=== PATIENT | male | born 1975 | race Caucasian/White ===

== ENCOUNTER 2018-05-08 18:16 | Observation (INO) ==
[2018-05-08] MEDS ORDERED: Haloperidol Lactate 5 MG/ML VIAL IM ONE (18:20)
[2018-05-08] MEDS ORDERED: *HR* LORazepam 2 MG/ML VIAL IM ONE (18:20)
[2018-05-08] MEDS ORDERED: 0.9 % Sodium Chloride 1,000 ML IVC ONE (19:18)
--- NOTE | 2018-05-08 19:32 | Emergency Department Note ---
Disposition Clinical Impression: Acute psychosis, Drug abuse, Chest pain Disposition: Admitted As Inpatient Condition: Fair Referrals: NONE,PCP [Primary Care Provider] - Time of Disposition: 19:32 General Adult HPI - General Chief complaint: ED Psychiatric Symptoms Stated complaint: General Time Seen by Provider: 05/08/18 18:20 Source: patient Limitations: no limitations - History of Present Illness Pain Scale: 0 - Related Data Allergies Allergy/AdvReac Type Severity Reaction Status Date / Time No Known Allergies Allergy Verified 05/08/18 15:17 Past Medical History - Past Medical History Medical history: Reports: hypertension Psychiatric history: Reports: anxiety, depression - Social History Smoking Status: Current every day smoker Smokeless Tobacco Status: No Alcohol use: Reports: occasionally Drug use: Reports: cocaine, methamphetamine Physical Exam - General Limitations: no limitations General appearance: alert, in no apparent distress Course Vital Signs Temperature 99 F 05/08/18 18:22 Pulse Rate 134 05/08/18 18:22 Respiratory Rate 20 05/08/18 18:22 Blood Pressure 153/131 05/08/18 18:22 O2 Sat by Pulse Oximetry 97 05/08/18 18:22 Temperature 99 F 05/08/18 18:22 Pulse Rate 139 05/08/18 18:31 Respiratory Rate 20 05/08/18 18:31 Blood Pressure 124/83 05/08/18 18:31 O2 Sat by Pulse Oximetry 98 05/08/18 18:31 Oxygen Delivery Oxygen Delivery Room Air Attestation Statement - Attestation Attestation: I, Josh Guerrier DO, examined this patient [id number] and my medical decision-making was reviewed with Dr. Yvonne Traore, Resident Physician. I agree with the documented findings, disposition and treatment plan as described except to the extent set forth below. Please see my progress notes for details. Patient return to the emergency room after eloping earlier today. Patient was positive for methamphetamines cocaine and opioids. Patient denied any of these substances being used within the last 24 hours prior to coming in the emergency room. The family member was with him at the bedside initially and said that he had not slept in 24-48 hours. He does have a substance abuse history. On presentation here the patient was hysterical with tachycardia noted up to 140 and screaming and complaining of significant chest pain. CT angiography the chest and abdomen are unremarkable as well as laboratory workup EKG status multiple events as well as her troponin had nondiagnostic presentation. Patient was brought back in today after eloping while he was walking [place] the middle of the [place]. The police arrested him and brought him in. They felt that he was not stable enough to be placed in correction at this times about about to the emergency room. The patient was argumentative combative and dangerous for the remainder the staff. Help 5 mg as well as 2 mg Ativan were provided in restraints were placed. She restrained orders were placed at this time. Patient will be admitted for unknown etiology to psychosis outside of potential drug-induced presentation. Patient otherwise had a negative initial cardiac evaluation as repeat EKG shows no changes out of the tachycardia 1:30. The patient was altered on arrival here this time but otherwise no other acute issues at this point. Patient will be admitted to the hospital for continuation of care. The hospitalist was contacted and they had no other concerns or issues at this point. Patient is resting in the bed at this time and no acute neurologic changes. CT imaging the head is unremarkable. See detailed documentation the physical exam, medical intervention, medical decision-making disposition in the resident physician's note.
--- NOTE | 2018-05-08 19:43 | Emergency Department Note ---
Disposition Clinical Impression: Acute psychosis, Drug abuse Chest pain Qualifiers: Chest pain type: unspecified Qualified Code(s): R07.9 - Chest pain, unspecified Disposition: Admitted As Inpatient Condition: Fair General Adult HPI - General Chief complaint: ED Psychiatric Symptoms Stated complaint: General Time Seen by Provider: 05/08/18 18:20 Source: patient, EMS, police Mode of arrival: EMS Limitations: no limitations Nursing Notes Reviewed: Yes Vital Signs Reviewed: Yes - History of Present Illness HPI Narrative: 42-year-old male who was seen earlier and eloped. Patient was found wandering the street near the hospital. He stated he did not know what year it was. In the room the patient states his chest pain has resolved. Denies any new areas of trauma. Patient aggressive and verbally abusive in the room during examination. Pain Scale: 0 - Related Data Home Medications Medication Instructions Recorded Confirmed Unable To Obtain [Unable to Obtain] 05/08/18 05/08/18 Allergies Allergy/AdvReac Type Severity Reaction Status Date / Time No Known Allergies Allergy Verified 05/08/18 15:17 Limitations: ROS unobtainable due to patients medical condition Past Medical History - Past Medical History Attestation: Yes The following information was validated with the patient. Medical history: Reports: hypertension Psychiatric history: Reports: anxiety, depression - Social History Smoking Status: Current every day smoker Smokeless Tobacco Status: No Alcohol use: Reports: occasionally Drug use: Reports: cocaine, methamphetamine Physical Exam - General Limitations: no limitations General appearance: alert, in no apparent distress - Head Head exam: other (Superficial abrasion noted over the left eyebrow) - Eye Eye exam: Present: normal appearance. Absent: scleral icterus, conjunctival injection - ENT ENT exam: mucous membranes dry - Chest Chest inspection: Present: normal inspection, symmetric chest wall rise. Absent : tenderness, rash - Respiratory Respiratory exam: Present: normal lung sounds bilaterally. Absent: respiratory distress, wheezes - Cardiovascular Cardiovascular exam: Present: normal rhythm, tachycardia, normal heart sounds - Abdominal Exam Abdominal exam: Present: soft, Non-Tender. Absent: distention, guarding, rebound - Extremities Exam Extremities exam: Present: full ROM - Neurological Exam Neurological exam: Present: alert - Psychiatric Psychiatric exam: Present: agitated, anxious - Skin Skin exam: Present: warm Course Course Narrative: 42-year-old male presenting for altered mental status. Seen earlier for chest pain and noted to have acute kidney injury. Patient remains dry on exam. He is extremely diaphoretic. Has superficial abrasion over the left eyebrow. Patient extremely aggressive and verbally abusive in the room. Patient given 50 of Benadryl, 5 of Haldol and 2 of Ativan. We will obtain a CT of the head and plan to admit him for altered mental status and chest pain. Concern for acute drug intoxication as well. Patient remains alert and is tachycardic but otherwise hemodynamically stable. We will pink slipped the patient due to concern for self-harm and harm to others. - Reevaluation(s) Reevaluation #1: Patient CT of the head benign. We will plan to admit the patient at this time hospitalist service. I spoke with the hospitalist on-call who agrees to accept the patient at this time. We will provide the patient with a liter of fluids at this time as well. Hemodynamically stable in the room. Vital Signs Temperature 99 F 05/08/18 18:22 Pulse Rate 134 05/08/18 18:22 Respiratory Rate 20 05/08/18 18:22 Blood Pressure 153/131 05/08/18 18:22 O2 Sat by Pulse Oximetry 97 05/08/18 18:22 Temperature 98.0 F 05/11/18 07:12 Pulse Rate 72 05/11/18 07:12 Respiratory Rate 18 05/11/18 07:12 Blood Pressure 138/89 05/11/18 07:12 O2 Sat by Pulse Oximetry 99 05/11/18 07:12 Oxygen Delivery Oxygen Delivery Room Air Medical Decision Making - Lab Data Result diagrams: 05/10/18 08:27 05/10/18 08:27 Attestation Statement - Attestation Attestation: I, Josh Guerrier DO, examined this patient [id number] and my medical decision-making was reviewed with Dr. Yvonne Traore, Resident Physician. I agree with the documented findings, disposition and treatment plan as described except to the extent set forth below. Please see my progress notes for details.
[2018-05-08] MEDS ORDERED: *HR* LORazepam 2 MG/ML VIAL IVP PRN (20:53)
[2018-05-08] MEDS ORDERED: Haloperidol Lactate 5 MG/ML VIAL IVP PRN (20:53)
[2018-05-08] MEDS ORDERED: Naloxone 0.4 MG/ML INJ IVP PRN (20:57)
--- NOTE | 2018-05-08 21:08 | Internal Med History&Physical ---
<Tommy Adame - Last Filed: 05/08/18 21:23> Date of Encounter: 05/08/18 Time of Encounter: 21:07 Internal Medicine - H&P: HPI Chief complaint: chest pain Admitted From: Home Plans for Post Hospital Care: Home History of present illness: Mr. Stover is a 42 year old male presented with chief complaint of chest pain. History is obtained from EMR as patient is sedated,not arousable after being given IV Ativan. She initially came in today EGD around 1354. At that time his chief complaint was chest pain and he stated that he likely use drugs 3 days ago. Patient woke up today and had severe substernal chest pain without radiation. He does not have a heart history. Patient does have a history of hypertension and diabetes. He also took Viagra today. In the ED patient went CTA which was negative. He became very agitated and was given Ativan and morphine. His chest pain worsened. He was unable to be given nitroglycerin to 2 Viagra use. BMP, EKG, troponin, CK were all within normal limits. He then became very agitated on a low from the emergency department when outside and sat on the telemetry pack. UDS was positive for opioids, cocaine, methamphetamine. Family member stated that he had not suffered 24-48 hours. Police [place] the patient in the middle [place] the [place]. He was taken back to [facility] and was sedated with Ativan and put on restraints. Repeat EKG showed no ischemic changes. CT of the head was negative. Past Med Surg Social Fam HX - Past Medical History Medical history: hypertension Psychiatric history: anxiety, depression - Past Surgical History Additional surgical history: Femur in leg - Social History Smoking Status: Current every day smoker Smokeless Tobacco Status: No Alcohol use: occasionally Drug use: cocaine, methamphetamine Internal Medicine - H&P: Meds Unable To Obtain [Unable to Obtain] 05/08/18 [History] 3 Allergy/AdvReac Type Severity Reaction Status Date / Time No Known Allergies Allergy Verified 05/08/18 15:17 ROS unobtainable: due to mental status All Systems PM: A 10-system review of systems was performed and is negative for pertinent findings except as documented above in the HPI. - Constitutional Vitals: Temp Pulse Resp BP Pulse Ox 99 F 139 20 124/83 98 05/08/18 18:22 05/08/18 18:31 05/08/18 18:31 05/08/18 18:31 05/08/18 18:31 Exam: General: Asleep, not arousable, diaphoretic HEENT: Head atraumatic, normocephalic, PERRL, absent ear discharge or trauma, unable to do oral exam. Neck: nontender to palpation, absent lymphadenopathy, Cardiovascualr: Sinus tachycardia without murmur, absent gallops or rubs, absent pedal edema, radial pulses 2 out of 4 Lungs: Clear to auscultation bilaterally, not in respiratory distress Abdomen: Soft nontender, nondistended positive bowel sounds, absent hepatomegaly Skin: Skin diaphoretic, absent rash, absent open wounds and nodules MSK: absent clubbing, cyanosis, joints without swelling Neuro: Unable to assess due to sedation Psych: unable to asses due to sedation - Assessment and plan (1) Chest pain Current Visit: Yes Status: Acute Assessment and plan: Patient's initial chief complaint was chest pain History and to be on methamphetamines and cocaine Likely causes chest pain His troponin was 0.03 His EKG was normal sinus rhythm with no ST-T wave changes A CTA was negative We will put patient on telemetry. Repeat CBC, BMP in the morning. Qualifiers: Chest pain type: unspecified Qualified Code(s): R07.9 - Chest pain, unspecified (2) Acute psychosis Current Visit: Yes Status: Acute Assessment and plan: 2nd to opiates, amphetamine, cocaine use Patient is currently sedated with Ativan and Haldol We will continue IV fluids. Nothing by mouth. restraints sitter Psychiatry consultation (3) Drug abuse Current Visit: Yes Status: Acute (4) PATRIA (acute kidney injury) Current Visit: Yes Status: Acute Assessment and plan: Likely secondary to drug abuse including amphetamines Patient is started on IV fluids BMP,CK, lfts in the morning This patient's kidney function does not improve he will need additional evaluation with urine studies and retroperitoneal ultrasound. - Time Spent With Patient Total time spent is greater than 50% in coordination of care (as documented) at patient's floor/unit and/or counseling patient: <Amado Bianchi - Last Filed: 05/08/18 22:55> Date of Encounter: 05/08/18 Internal Medicine - H&P: HPI History of present illness: Mr. Stover is a 42 year old male All Systems PM: A 10-system review of systems was performed and is negative for pertinent findings except as documented above in the HPI. - Constitutional Vitals: Temp Pulse Resp BP Pulse Ox 97.6 F 79 18 112/70 97 05/08/18 21:32 05/08/18 21:32 05/08/18 21:32 05/08/18 21:32 05/08/18 21:32 - Assessment and plan (1) Chest pain Current Visit: Yes Status: Acute Qualifiers: Chest pain type: unspecified Qualified Code(s): R07.9 - Chest pain, unspecified (2) Drug abuse Current Visit: Yes Status: Acute (3) Acute psychosis Current Visit: Yes Status: Acute (4) PATRIA (acute kidney injury) Current Visit: Yes Status: Acute - Time Spent With Patient Total time spent is greater than 50% in coordination of care (as documented) at patient's floor/unit and/or counseling patient: - Attending Attestation 42-year-old male with a history of substance abuse disorder who presents with amphetamine intoxication found by police in the streets roaming after a prior signing out AMA episodes from the ER. Seems to be more notably altered than his initial presentation earlier in the afternoon when he came in with a complaint of chest pain. Here he required lorazepam, haloperidol and diphenhydramine for sedation. Head CT unremarkable. Remained hemodynamically stable. He was pink slipped due to concern for self-harm and harm to others as he was verbally abusive in the ER. On my assessment patient was nonverbal to me however. Seems clinically stable. Physical exam grossly unremarkable. On IV fluids, check electrolytes and CK level to ensure there within normal limits. Lorazepam when necessary as needed and will benefit from psych consultation in the morning.
[2018-05-08] MEDS: *HR* Heparin 5,000 UNIT/ML VIAL SQ SCH (23:29)
[2018-05-08] MEDS: Ringers Solution, Lactated 1,000 ML IVC SCH (23:40)
[2018-05-09 05:54] LABS: Alanine Aminotransferase 15 Units/L (7-52); Albumin 4.2 g/dL (3.5-5.7); Albumin/Globulin Ratio 1.7 (1.1-2.2); Alkaline Phosphatase 66 Units/L (34-104); Aspartate Amino Transferase 18 Units/L (13-39); BUN/Creatinine Ratio 13 (6-26); Bilirubin,Direct 0.2 mg/dL (0.0-0.2); Bilirubin,Indirect 0.5 mg/dL (0.0-1.2); Bilirubin,Total 0.7 mg/dL (0.3-1.0); Blood Urea Nitrogen 15 mg/dL (6-20); Calcium 9.3 mg/dL (8.6-10.3); Carbon Dioxide 24 mEq/L (23-29); Chloride 109 mEq/L (98-107); Creatine Kinase 223 Units/L (30-223); Globulin 2.5 g/dL (2.4-3.5); Glucose 92 mg/dL (70-105); Magnesium 2.4 mg/dL (1.6-2.6); Osmolality,Calculated 294 (280-300); Potassium 4.2 mEq/L (3.5-5.1); Sodium 142 mEq/L (136-145); Total Protein 6.7 g/dL (6.4-8.9); eGFR For Non-African Americans > 60 (> 60)
[2018-05-09] MEDS: *HR* Heparin 5,000 UNIT/ML VIAL SQ SCH ×3 (06:10→21:18)
[2018-05-09] MEDS: Ringers Solution, Lactated 1,000 ML IVC SCH (07:31)
[2018-05-09 07:39] LABS: Basophils % 0.2 %; Eosinophils % 0.5 %; Hematocrit 34.8 % (37.5-50.1); Hemoglobin 12.2 g/dL (12.9-16.9); Immature Granulocytes % 0.4 % (0-4); Lymphocytes % 47.5 %; Mean Corpuscular HGB Conc 35.1 g/dL (31.6-35.5); Mean Corpuscular Hemoglobin 34.3 pg (28.0-33.3); Mean Corpuscular Volume 97.8 fL (83.0-100.0); Mean Platelet Volume 9.1 fL (9.4-12.4); Monocytes # 0.6 K/mcL (0.0-1.3); Monocytes % 10.1 %; Neutrophils # 2.3 K/mcL (1.6-8.9); Platelet Count 106 K/mcL (140-400); Red Blood Count 3.56 M/mcL (4.19-5.50); Red Cell Distribution Width 13.8 % (11.5-14.5); Segmented Neutrophils % 41.3 %
[2018-05-09 10:01] LABS: Lymphocytes # 2.7 K/mcL (0.6-4.6)
[2018-05-09 10:02] LABS: Platelet Estimate Slight Decrease (Normal)
--- NOTE | 2018-05-09 11:39 | Internal Med Progress Note ---
Hospitalist Progress Note - Encounter Date of Encounter: 05/09/18 Time of Encounter: 11:39 - Subjective Interval History: Patient seen and examined at bedside currently patient is awake alert and oriented following simple commands. He does not recall any of the events that took place yesterday. He denies taking any cocaine or methamphetamines he states he took some 3 days ago. Denies any chest pain at this time we will complete cardiac workup reviewed treatment plan with the patient who verbalized understanding. - Exam Vitals: Temp Pulse Resp BP Pulse Ox 97.8 F 82 18 117/79 98 05/09/18 06:19 05/09/18 06:19 05/09/18 06:19 05/09/18 06:19 05/09/18 06:19 Exam: General: Alert appropriate following directions HEENT: Head atraumatic, normocephalic, PERRL, absent ear discharge or trauma, unable to do oral exam. Neck: nontender to palpation, absent lymphadenopathy, Cardiovascualr: Sinus tachycardia without murmur, absent gallops or rubs, absent pedal edema, radial pulses 2 out of 4 Lungs: Clear to auscultation bilaterally, not in respiratory distress Abdomen: Soft nontender, nondistended positive bowel sounds, absent hepatomegaly Skin: Skin diaphoretic, absent rash, absent open wounds and nodules MSK: absent clubbing, cyanosis, joints without swelling Neuro: Alert oriented 3 following simple commands cranial nerves II through 12 are intact Psych: Appropriate affect - Assessment and Plan (1) Chest pain Current Visit: Yes Status: Acute Assessment and Plan: Patient's initial chief complaint was chest pain History and to be on methamphetamines and cocaine Likely causes chest pain His troponin was 0.03 His EKG was normal sinus rhythm with no ST-T wave changes A CTA was negative We will put patient on telemetry. Repeat CBC, BMP in the morning. 05/09 currently he is chest pain-free we will recheck EKG and troponin obtain echo-suspect chest pain secondary to illicit drug use (2) Drug abuse Current Visit: Yes Status: Acute Assessment and Plan: 1 patient was positive for amphetamines ,cocaine and opioids-patient denies using any drugs prior to presentation. States that he has used in the past Will monitor for any withdrawal Cardiac monitoring we will check EKG (3) Acute psychosis Current Visit: Yes Status: Resolved Assessment and Plan: 2nd to opiates, amphetamine, cocaine use Patient is currently sedated with Ativan and Haldol We will continue IV fluids. Nothing by mouth. restraints sitter Psychiatry consultation 05-09 appears patient is back to baseline-acute psychoses most likely secondary to amphetamines and cocaine use Appreciate psychiatry recommendation (4) PATRIA (acute kidney injury) Current Visit: Yes Status: Acute Assessment and Plan: Likely secondary to drug abuse including amphetamines Patient is started on IV fluids BMP,CK, lfts in the morning This patient's kidney function does not improve he will need additional evaluation with urine studies and retroperitoneal ultrasound. 05/09-this is returned to baseline after IV fluids-most likely secondary to drug abuse - Time Spent with Patient Total time spent is greater than 50% in coordination of care (as documented) at patient's floor/unit and/or counseling patient: Internal Medicine: Result - Labs CBC & Chem 7: 05/09/18 07:11 05/09/18 04:41 Labs: Short CBC 05/09/18 Range/Units 07:11 WBC 5.6 (4.3-11.1) K/mcL Hgb 12.2 L (12.9-16.9) g/dL Hct 34.8 L (37.5-50.1) % Plt Count 106 L (140-400) K/mcL Neutrophils # 2.3 (1.6-8.9) K/mcL BMP 05/09/18 04:41 Sodium 142 Potassium 4.2 Chloride 109 H Carbon Dioxide 24 BUN 15 Creatinine 1.13 Glucose 92 Calcium 9.3 Liver Function 05/09/18 Range/Units 04:41 Total Bilirubin 0.7 (0.3-1.0) mg/dL Direct Bilirubin 0.2 (0.0-0.2) mg/dL AST 18 (13-39) Units/L ALT 15 (7-52) Units/L Alkaline Phosphatase 66 (34-104) Units/L Albumin 4.2 (3.5-5.7) g/dL Consult Discharge Plan - Plan Referrals: NONE,PCP [Primary Care Provider] - (1) Chest pain Qualifiers: Chest pain type: unspecified Qualified Code(s): R07.9 - Chest pain, unspecified
--- NOTE | 2018-05-09 14:42 | Psychiatry Progress Note ---
Date of Encounter: 05/09/18 Time of Encounter: 14:20 Subjective Interval history: Psychiatric consultation note: 42 years old male admitted to the hospital for evaluation of chest pain, history of abuse of opiates and cocaine and amphetamine. He was uncooperative and agitated and left the hospital AMA and readmitted. Currently stabilizing on the medical service. Psychiatric consultation was requested for possible overdose on drugs. Review of records excludes any psychiatric history or treatment. History is positive for substance abuse and dependence including opiates, cocaine and amphetamine. On interview with the patient was asleep and did not respond to my command's to interview him. Advised nursing staff to to address his cardiac presentation. Recommended referral to chemical dependency rehabilitation service by social work. From psychiatric standpoint no specific recommendation and we will sign off on this consult. Results - Vital Signs Vital Signs: Temp Pulse Resp BP Pulse Ox 97.8 F 90 20 138/82 97 05/09/18 11:39 05/09/18 11:39 05/09/18 11:39 05/09/18 11:39 05/09/18 11:39 - Labs Labs: Laboratory Results - last 24 hr 05/08/18 05/09/18 05/09/18 23:56 04:41 04:41 WBC RBC Hgb Hct MCV MCH MCHC RDW Plt Count MPV Immature Gran % Seg Neutrophils % Lymphocytes % Monocytes % Eosinophils % Basophils % Neutrophils # Lymphocytes # Monocytes # Eosinophils # Basophils # Platelet Estimate Sodium 142 Potassium 4.2 Chloride 109 H Carbon Dioxide 24 BUN 15 Creatinine 1.13 Est GFR ( Amer) > 60 Est GFR (Non-Af Amer) > 60 BUN/Creatinine Ratio 13 Glucose 92 POC Glucose 96 Calculated Osmolality 294 Calcium 9.3 Magnesium 2.4 Total Bilirubin 0.7 Direct Bilirubin 0.2 Indirect Bilirubin 0.5 AST 18 ALT 15 Alkaline Phosphatase 66 Creatine Kinase 223 Troponin I Serum Total Protein 6.7 Albumin 4.2 Globulin 2.5 Albumin/Globulin Ratio 1.7 Specimen Rejected MCV Delta 05/09/18 05/09/18 07:11 12:53 WBC 5.6 RBC 3.56 L Hgb 12.2 L Hct 34.8 L MCV 97.8 MCH 34.3 H MCHC 35.1 RDW 13.8 Plt Count 106 L MPV 9.1 L Immature Gran % 0.4 Seg Neutrophils % 41.3 Lymphocytes % 47.5 Monocytes % 10.1 Eosinophils % 0.5 Basophils % 0.2 Neutrophils # 2.3 Lymphocytes # 2.7 Monocytes # 0.6 Eosinophils # 0.0 Basophils # 0.0 Platelet Estimate Slight Decrease L Sodium Potassium Chloride Carbon Dioxide BUN Creatinine Est GFR ( Amer) Est GFR (Non-Af Amer) BUN/Creatinine Ratio Glucose POC Glucose Calculated Osmolality Calcium Magnesium Total Bilirubin Direct Bilirubin Indirect Bilirubin AST ALT Alkaline Phosphatase Creatine Kinase Troponin I < 0.03 Serum Total Protein Albumin Globulin Albumin/Globulin Ratio Specimen Rejected Consult Discharge Plan - Plan Referrals: NONE,PCP [Primary Care Provider] - Psychiatry Exam - Constitutional Vitals: Temp Pulse Resp BP Pulse Ox 97.8 F 90 20 138/82 97 05/09/18 11:39 05/09/18 11:39 05/09/18 11:39 05/09/18 11:39 05/09/18 11:39
[2018-05-10] MEDS: *HR* Heparin 5,000 UNIT/ML VIAL SQ SCH ×3 (05:19→21:11)
[2018-05-10 08:45] LABS: Basophils % 0.2 %; Eosinophils % 0.4 %; Hematocrit 36.4 % (37.5-50.1); Hemoglobin 12.5 g/dL (12.9-16.9); Immature Granulocytes % 0.2 % (0-4); Immature Platelets 1.2 % (1.1-6.1); Lymphocytes # 1.9 K/mcL (0.6-4.6); Lymphocytes % 43.2 %; Mean Corpuscular HGB Conc 34.3 g/dL (31.6-35.5); Mean Corpuscular Hemoglobin 35.6 pg (28.0-33.3); Mean Corpuscular Volume 103.7 fL (83.0-100.0); Mean Platelet Volume 8.7 fL (9.4-12.4); Monocytes # 0.4 K/mcL (0.0-1.3); Neutrophils # 2.2 K/mcL (1.6-8.9); Platelet Count 131 K/mcL (140-400); Red Blood Count 3.51 M/mcL (4.19-5.50); Red Cell Distribution Width 13.2 % (11.5-14.5)
[2018-05-10 09:03] LABS: BUN/Creatinine Ratio 12 (6-26); Blood Urea Nitrogen 13 mg/dL (6-20); Calcium 8.8 mg/dL (8.6-10.3); Carbon Dioxide 25 mEq/L (23-29); Chloride 106 mEq/L (98-107); Glucose 154 mg/dL (70-105); Osmolality,Calculated 285 (280-300); Sodium 136 mEq/L (136-145); eGFR For Non-African Americans > 60 (> 60)
[2018-05-10] MEDS: Nicotine 21 MG PATCH.TD24 TD SCH (09:50)
--- NOTE | 2018-05-10 14:51 | Discharge Summary ---
- NOTES TO OUTPATIENT PROVIDER Notes to Outpatient Provider: Patient presented to emergency room with complaints of chest pain after using cocaine methamphetamines. Troponins were negative [address]-T wave abnormalities echo LVEF 55%. Normal LV chamber size and function. Mild concentric left ventricular hypertrophy. Normal right ventricular structure and function. No significant valvular dysfunction. Unable to estimate pulmonary artery pressure due to lack of TR jet. He is not experience any more chest pain since admitted-recommend referral to chemical dependency rehabilitation by social work. Orders not resulted at time of discharge: Pending orders 05/09/18 11:20 EKG [ECG 12 lead ECG] [ECG] Routine Date of Encounter: 05/10/18 Time of Encounter: 14:46 - Discharge Diagnosis (1) Chest pain Priority: Primary Status: Acute Qualifiers: Chest pain type: unspecified Qualified Code(s): R07.9 - Chest pain, unspecified (2) Drug abuse Priority: Secondary Status: Acute (3) Acute psychosis Priority: Secondary Status: Resolved (4) PATRIA (acute kidney injury) Priority: Secondary Status: Acute Hospital course: Mr. Stover is a 42 year old male with past medical history of hypertension. Patient presented to the emergency department with chief complaints of chest pain-describing substernal without radiation he does not have any past heart history however the does admit to using drugs he states 3 days ago however his tox screen was positive for opiates methamphetamines and cocaine. He also has taken Viagra and he was unable to receive nitroglycerin. Lab work was unremarkable EKG with no ischemic changes CT of his head was negative. During ER evaluation patient eloped and was eventually arrested and brought back by police. CTA chest was obtained and was negative troponins were negative 3. He did have an AK I on presentation was given IV fluids and has returned back to baseline Echo was completed with results LVEF 55%. Normal LV chamber size and function. Mild concentric left ventricular hypertrophy. Normal right ventricular structure and function. No significant valvular dysfunction. Unable to estimate pulmonary artery pressure due to lack of TR jet. He has not had any chest pain during this admission. He was seen by psychiatry -who felt that his altered mental state related to drug intoxication. Currently he is alert appropriate back to baseline. Chest pain most likely related to amphetamine and cocaine use Again he denies using any drugs recently he states he used him 3 days ago. Advised patient to stop using drugs offered information concerning Narcotics Anonymous. Advised patient to follow- up with primary care-residency clinic . Discharge patient was told that he will be charged with a fourth degree felony patient became very anxious and hyperventilating did have some chest pain on inspiration troponin was negative EKG was okay mostly related to anxiety eventually did calm down and chest pain improved. Again advised patient to follow up with primary care provider is ready for discharge at this time. - Time Spent with Patient Total time spent providing and/or coordinating discharge services: - Discharge Medications Home Medications: Unable To Obtain [Unable to Obtain] 05/08/18 [History] Allergies/Adverse Reactions: 3 Allergy/AdvReac Type Severity Reaction Status Date / Time No Known Allergies Allergy Verified 05/08/18 15:17 Date of admission: 05/08/18 20:04 Primary care physician: PCP NONE Consults: 05/08/18 20:59 Consult to Psychiatry [CONS] Routine Consulting Provider: Psychiatry Radha Reason consult: Other Other reason and/or additional details: overdose on opiates, amphetamines, cocaine Time Notified: 20:59 Call Completed: Yes Discharging clinician: Petrona Rodriguez Anticipated date of discharge: 05/10/18 - Constitutional Vitals: Temp Pulse Resp BP Pulse Ox 98.6 F 82 16 136/88 97 05/10/18 12:07 05/10/18 12:07 05/10/18 12:07 05/10/18 12:07 05/10/18 12:07 General appearance: Present: A&O X 3 Exam: General: Alert appropriate following directions HEENT: Head atraumatic, normocephalic, PERRL, absent ear discharge or trauma, unable to do oral exam. Neck: nontender to palpation, absent lymphadenopathy, Cardiovascualr: Sinus tachycardia without murmur, absent gallops or rubs, absent pedal edema, radial pulses 2 out of 4 Lungs: Clear to auscultation bilaterally, not in respiratory distress Abdomen: Soft nontender, nondistended positive bowel sounds, absent hepatomegaly Skin: Skin diaphoretic, absent rash, absent open wounds and nodules MSK: absent clubbing, cyanosis, joints without swelling Neuro: Alert oriented 3 following simple commands cranial nerves II through 12 are intact Psych: Appropriate affect - Head Head exam: Present: atraumatic, normocephalic - Eye Eye exam: Present: PERRL, conjuntiva pink, sclera anicteric Pupils: Present: PERRL - Neck Neck exam general surgery: Present: supple, trachea midline. Absent: lymphadenopathy - Respiratory Respiratory exam: Present: CTAB. Absent: accessory muscle use, rales, rhonchi, wheezes - Cardiovascular Cardiovascular exam: Present: RRR, +S1, +S2. Absent: diastolic murmur, gallop, rubs, systolic murmur - GI/Abdominal GI/Abdominal exam: Present: normal bowel sounds, soft, no peritoneal signs. Absent: distended, tenderness - Extremities Exam Extremities exam: Present: warm, radial pulses palpable and symmetrical. Absent : calf tenderness, cyanotic, pedal edema - Neurological Exam Neurological exam: Present: CN II-XII intact, oriented X3, no focal deficits. Absent: pronater drift, facial droop, speech deficit - Skin Skin exam: Present: dry, intact - Patient Status Disposition: Home, Self-Care Condition: Fair - Discharge Instructions Instructions: Chest Pain (DC) Follow Up With: NONE,PCP [Primary Care Provider] - - Diet and Activity Activity: increase activity as tolerated Diet: advance to your usual diet
[2018-05-10] MEDS: Nitroglycerin 0.4 MG TAB.SUBL SL PRN ×2 (18:17→18:22)
[2018-05-10] MEDS ORDERED: Ibuprofen 400 MG TABLET PO PRN (18:34)
[2018-05-10] MEDS ORDERED: Acetaminophen 325 MG TABLET PO PRN (18:34)
[2018-05-10] MEDS ORDERED: *HR* HYDROcodone/Acet 5/325 mg TABLET PO PRN (18:34)
[2018-05-10] MEDS ORDERED: Aspirin 325 MG TABLET PO ONE (19:10)
--- NOTE | 2018-05-10 19:15 | Internal Med Progress Note ---
Hospitalist Progress Note - Encounter Date of Encounter: 05/10/18 Time of Encounter: 19:12 - Subjective Interval History: Patient seen and examined at bedside earlier today. Patient's lab work as well as EKG and echo all came back within normal limits. Was attempting to discharge patient when he developed sudden onset of midsternal chest pain which is radiating to 10 as well as an elevated blood pressure 156/100 and shortness of breath. EKG was obtained with no ST-T wave abnormalities patient was given nitroglycerin which did relieve chest pain also give aspirin. Stat Troponin was negative We will keep patient overnight and observed we will make patient nothing by mouth after midnight and stress in the morning. - Exam Vitals: Temp Pulse Resp BP Pulse Ox 97.5 F L 87 22 121/79 98 05/10/18 17:46 05/10/18 18:25 05/10/18 18:25 05/10/18 18:25 05/10/18 18:25 Exam: General: Alert appropriate following directions HEENT: Head atraumatic, normocephalic, PERRL, absent ear discharge or trauma, unable to do oral exam. Neck: nontender to palpation, absent lymphadenopathy, Cardiovascualr: Sinus tachycardia without murmur, absent gallops or rubs, absent pedal edema, radial pulses 2 out of 4 Lungs: Clear to auscultation bilaterally, not in respiratory distress Abdomen: Soft nontender, nondistended positive bowel sounds, absent hepatomegaly Skin: Skin diaphoretic, absent rash, absent open wounds and nodules MSK: absent clubbing, cyanosis, joints without swelling Neuro: Alert oriented 3 following simple commands cranial nerves II through 12 are intact Psych: Appropriate affect - Assessment and Plan (1) Chest pain Current Visit: Yes Status: Acute Assessment and Plan: Patient's initial chief complaint was chest pain History and to be on methamphetamines and cocaine Likely causes chest pain His troponin was 0.03 His EKG was normal sinus rhythm with no ST-T wave changes A CTA was negative We will put patient on telemetry. Repeat CBC, BMP in the morning. 05/09 currently he is chest pain-free we will recheck EKG and troponin obtain echo-suspect chest pain secondary to illicit drug use 05/10 patient had a sudden onset of midsternal chest pain 10/10 with shortness of breath headache elevated blood pressure. Pain was relieved with nitroglycerin. EKG within normal limits troponins are negative cardiac echo was negative. We will keep patient overnight nothing by mouth at the night stress test in a.m. Continue with aspirin (2) Drug abuse Current Visit: Yes Status: Acute Assessment and Plan: 1 patient was positive for amphetamines ,cocaine and opioids-patient denies using any drugs prior to presentation. States that he has used in the past Will monitor for any withdrawal Cardiac monitoring we will check EKG [employer] concerning drug rehabilitation (3) Acute psychosis Current Visit: Yes Status: Resolved Assessment and Plan: 2nd to opiates, amphetamine, cocaine use Patient is currently sedated with Ativan and Haldol We will continue IV fluids. Nothing by mouth. restraints sitter Psychiatry consultation 05-09 appears patient is back to baseline-acute psychoses most likely secondary to amphetamines and cocaine use Appreciate psychiatry recommendation 05/10 resolved (4) PATRIA (acute kidney injury) Current Visit: Yes Status: Acute Assessment and Plan: Likely secondary to drug abuse including amphetamines Patient is started on IV fluids BMP,CK, lfts in the morning This patient's kidney function does not improve he will need additional evaluation with urine studies and retroperitoneal ultrasound. 05/09-this is returned to baseline after IV fluids-most likely secondary to drug abuse 05/10 resolved - Time Spent with Patient Total time spent is greater than 50% in coordination of care (as documented) at patient's floor/unit and/or counseling patient: Internal Medicine: Result - Labs CBC & Chem 7: 05/10/18 08:27 05/10/18 08:27 Labs: Short CBC 05/10/18 Range/Units 08:27 WBC 4.5 (4.3-11.1) K/mcL Hgb 12.5 L (12.9-16.9) g/dL Hct 36.4 L (37.5-50.1) % Plt Count 131 L (140-400) K/mcL Neutrophils # 2.2 (1.6-8.9) K/mcL BMP 05/10/18 08:27 Sodium 136 Potassium 4.0 Chloride 106 Carbon Dioxide 25 BUN 13 Creatinine 1.05 Glucose 154 H Calcium 8.8 Cardiac Enzymes 05/09/18 05/10/18 Range/Units 20:57 16:25 Troponin I < 0.03 < 0.03 (< 0.04) ng/mL - Impressions Impressions Echocardiogram 05/10/18 12:18 Impressions: LVEF 55%. Normal LV chamber size and function. Mild concentric left ventricular hypertrophy. Normal right ventricular structure and function. No significant valvular dysfunction. Unable to estimate pulmonary artery pressure due to lack of TR jet. Left Ventricular Wall Motion: Rest Echo Findings All wall segments showed normal motion. Findings: Study Quality * Technically adequate exam. ECG Findings * Normal sinus rhythm. Left Ventricle * LVEF 55%. * Mild concentric left ventricular hypertrophy. * Normal LV chamber size and systolic function. * Normal left ventricular diastolic function. Right Ventricle * Normal right ventricular structure and function. Left Atrium * Normal left atrial size. Right Atrium * Normal right atrial size. Interatrial Septum * Interatrial septum not well evaluated. Aortic Valve * Trileaflet aortic valve. * Trileaflet aortic valve with normal function. * No aortic regurgitation. Mitral Valve * Normal mitral valve structure and function. * No mitral regurgitation. Tricuspid Valve * Normal tricuspid valve structure and function. * No tricuspid regurgitation. * Estimated RA pressure is 5 mmHg. * Unable to estimate RVSP due to lack of TR jet. Pulmonic Valve * No pulmonic regurgitation. * Pulmonic valve not well visualized. Aorta * Normally sized aortic root. Pericardium * The pericardium appears normal. IVC * Normal IVC dimensions and inspiratory collapse. Consult Discharge Plan - Plan Instructions: Chest Pain (DC) Referrals: NONE,PCP [Primary Care Provider] - (1) Chest pain Qualifiers: Chest pain type: unspecified Qualified Code(s): R07.9 - Chest pain, unspecified
[2018-05-11] MEDS ORDERED: Aspirin 81 MG TAB.CHEW PO SCH (09:00)
[2018-05-11] MEDS: *HR* Heparin 5,000 UNIT/ML VIAL SQ SCH (09:24)
[2018-05-11 11:41] VITALS: BP 132/85
[2018-05-11] MEDS: Nicotine 21 MG PATCH.TD24 TD SCH (13:46)
--- NOTE | 2018-05-11 16:04 | Discharge Summary ---
- NOTES TO OUTPATIENT PROVIDER Notes to Outpatient Provider: Patient may benefit from outpatient stress test. Offered inpatient as well as outpatient drug rehabilitation patient declined offer Date of Encounter: 05/11/18 Time of Encounter: 12:00 - Discharge Diagnosis (1) Chest pain Priority: Primary Status: Acute Assessment and Plan: Patient's initial chief complaint was chest pain History and to be on methamphetamines and cocaine Likely causes chest pain His troponin was 0.03 His EKG was normal sinus rhythm with no ST-T wave changes A CTA was negative We will put patient on telemetry. Repeat CBC, BMP in the morning. 05/09 currently he is chest pain-free we will recheck EKG and troponin obtain echo-suspect chest pain secondary to illicit drug use 05/10 patient had a sudden onset of midsternal chest pain 06/03 with shortness of breath headache elevated blood pressure. Pain was relieved with nitroglycerin. EKG within normal limits troponins are negative cardiac echo was negative. We will keep patient overnight nothing by mouth at the night stress test in a.m. Continue with aspirin Qualifiers: Chest pain type: unspecified Qualified Code(s): R07.9 - Chest pain, unspecified (2) Drug abuse Priority: Secondary Status: Acute (3) Acute psychosis Priority: Secondary Status: Resolved (4) PATRIA (acute kidney injury) Priority: Secondary Status: Acute Hospital course: Mr. Stover is a 42 year old male past medical history of hypertension presented to the emergency department with chief complaint of chest pain. Parmar has a substance abuse history upon presentation the patient was hysterical and tachycardic with a heart rate of 140 he was screaming and has significant chest pain. According to ER records family ported that he had not slept for 24-48 hours he was positive for methamphetamines cocaine and opioids. He also had taken Viagra so he was unable to receive any nitroglycerin. During his initial admission in the ER he did elope and he was found [place] the [place] resident brought him back to the ER CT of head was obtained and was unremarkable for did show PATRIA. EKG showed no ischemic changes He was given IV Ativan and was restrained He was admitted for further workup evaluation . He was seen by psychiatry who felt his mental status change was related to drug interaction. Echocardiogram was obtained EF of 55% and normal LV chamber size and function mild concentric left ventricular hypertrophy and normal right ventricular structure and functionsignificant 50 dysfunction. Troponins were negative 3. Patient was about to be discharged when he began to experience chest pressure and headache elevated blood pressure with systolic 1 5160 diastolic over 100. Apparently patient was informed that he will be charged [place]. Patient was given nitroglycerin his chest pain did improve EKG within normal limits patient was kept overnight for observation troponins were negative patient was to go down for a stress test however he continued to have a nicotine patch on overnight. Advised the patient that he can follow-up as outpatient stress. Patient stating that he is concerned he is having a stroke because of headache. Offered patient MRI initially patient was agreeable to nursing staff reports the patient became angry poor IV and stated he can follow-up as outpatient. Patient left AMA before he could be reevaluated by provider. Discharge discussed with: patient - Time Spent with Patient Total time spent providing and/or coordinating discharge services: - Discharge Medications Home Medications: Unable To Obtain [Unable to Obtain] 05/08/18 [History] Allergies/Adverse Reactions: 3 Allergy/AdvReac Type Severity Reaction Status Date / Time No Known Allergies Allergy Verified 05/08/18 15:17 Date of admission: 05/08/18 20:04 Primary care physician: PCP NONE Consults: 05/08/18 20:59 Consult to Psychiatry [CONS] Routine Consulting Provider: Psychiatry Radha Reason consult: Other Other reason and/or additional details: overdose on opiates, amphetamines, cocaine Time Notified: 20:59 Call Completed: Yes - Constitutional Vitals: Temp Pulse Resp BP Pulse Ox 98.1 F 70 18 132/85 99 05/11/18 11:39 05/11/18 11:39 05/11/18 11:39 05/11/18 11:39 05/11/18 11:39 General appearance: Present: A&O X 3 Exam: General: Alert appropriate following directions HEENT: Head atraumatic, normocephalic, PERRL, absent ear discharge or trauma, unable to do oral exam. Neck: nontender to palpation, absent lymphadenopathy, Cardiovascualr: Sinus tachycardia without murmur, absent gallops or rubs, absent pedal edema, radial pulses 2 out of 4 Lungs: Clear to auscultation bilaterally, not in respiratory distress Abdomen: Soft nontender, nondistended positive bowel sounds, absent hepatomegaly Skin: Skin diaphoretic, absent rash, absent open wounds and nodules MSK: absent clubbing, cyanosis, joints without swelling Neuro: Alert oriented 3 following simple commands cranial nerves II through 12 are intact Psych: Appropriate affect - Head Head exam: Present: atraumatic, normocephalic - Eye Eye exam: Present: PERRL, conjuntiva pink, sclera anicteric Pupils: Present: PERRL - Neck Neck exam general surgery: Present: supple, trachea midline. Absent: lymphadenopathy - Respiratory Respiratory exam: Present: CTAB. Absent: accessory muscle use, rales, rhonchi, wheezes - Cardiovascular Cardiovascular exam: Present: RRR, +S1, +S2. Absent: diastolic murmur, gallop, rubs, systolic murmur - GI/Abdominal GI/Abdominal exam: Present: normal bowel sounds, soft, no peritoneal signs. Absent: distended, tenderness - Extremities Exam Extremities exam: Present: warm, radial pulses palpable and symmetrical. Absent : calf tenderness, cyanotic, pedal edema - Neurological Exam Neurological exam: Present: CN II-XII intact, oriented X3, no focal deficits. Absent: pronater drift, facial droop, speech deficit - Skin Skin exam: Present: dry, intact - Patient Status Disposition: Left Against Medical Advice - Discharge Instructions Instructions: Chest Pain (DC) Follow Up With: NONE,PCP [Primary Care Provider] -
--- NOTE | 2018-05-11 22:21 | Electrocardiograph Report ---
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
--- NOTE | 2018-05-12 17:44 | Electrocardiograph Report ---
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
--- NOTE | 2018-05-12 17:50 | Electrocardiograph Report ---
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
== END 2018-05-11 12:35 | disposition left against medical advice (07) ==
LOC: 3BNU 18:16 → EMEROOARM 18:16 → 3BNU 21:20
PROVIDERS: ADMIT Internal Medicine; ATTEND Internal Medicine